=== PATIENT | female | born 1975 | race Caucasian/White ===

== ENCOUNTER 2016-08-15 14:36 | Emergency (ER) | payer OTHER ==
[~2016-08-15] VITALS: Ht 168.9 cm; Wt 160.9 kg
[~2016-08-15 14:36] MED LIST: HCTZ
[2016-08-15 14:44] VITALS: BP 194/108; PULSE 135; RESP 16; O2SAT 98
--- NOTE | 2016-08-15 14:57 | ED.REPORT ---
HPI-Allergic Reaction Date of Service Aug 15, 2016 ED Provider: Conor White DO A 41 year old female with a history of allergic reactions to antibiotics, diabetes, and HTN presents to the ED complaining of rash onset 3 days ago. She went to 6 days ago because of tooth pain and was prescribed clindamycin. 3 days ago she noticed a single hive-like rash on her chest. 2 days ago, she awoke to diffuse hive-like rash that has gotten progressively worse. Associated symptoms include facial swelling, and skin tightness. She denies any throat swelling or SOB. In the past, the patient experienced a 4-day delayed allergic reaction to zithromax that she was prescribed. Nursing Notes Stated Complaint: ALLERGIC REACTION TO ANTIOBIOTIC Chief Complaint: Allergic Reaction Nursing Notes Reviewed: Yes Allergies: Coded Allergies: azithromycin (Verified Allergy, Unknown, 08/15/16) codeine (Verified Allergy, Unknown, 08/15/16) Uncoded Allergies: 2 ? ABX PER PT- UNABLE TO RECALL (Allergy, Unknown, 08/15/16) Scheduled ([Hctz]) DAILY PT UNABLE TO RECALL DOSE Famotidine (Pepcid) 40 Mg Tablet 40 MG PO BID Prednisone (PredniSONE) 50 Mg Tablet 50 MG PO DAILY Scheduled PRN diphenhydrAMINE HCl (Benadryl) 25 Mg Capsule 50 MG PO QID PRN PRN For Itching General Time Seen by MD: 14:54 Chief Complaint Rash Hx Obtained From: Patient Arrived By: Walk-in Onset Occurred: 3 days ago Symptom Duration: Since onset Recent Healthcare: Recent doctor visit (went to 6 days ago for tooth pain.) Similar Sx Previous: Yes Past Medical History Past Medical History 4-day delayed allergic reation to zithromax in the past. Reports: Diabetes mellitus, Hypertension Past Surgical History none reported. Ambulatory Status Independent Review of Systems Review of Systems Note: facial swelling. Skin tightness. Ears / Nose / Throat: Denies: Throat swelling Respiratory: Denies: Shortness of breath Skin: Reports Rash (Hive like) Complete sys rev & neg: except as marked. Physical Exam Physical Exam Notes: Initial Vital Signs Vital Signs (First) Date Time Temp Pulse Resp B/P Pulse Ox O2 Delivery O2 Flow Rate FiO2 08/15/16 14:44 38.5 135 16 194/108 98 Room Air Initial VS: Reviewed General/Constitutional: Awake, Alert patient is febrile. Respiratory / Chest: Atraumatic, Breath sounds NL, Breath sounds = bilat, No respiratory distress, No wheezing, No stridor Heart Rate / Rhythm: Positive: Tachycardia hypertensive. diffuse urticaria. Head / Eyes: Atraumatic, Normocephalic, PERRL, EOMI face is bright red. ENT: Atraumatic, No trismus no oropharyngeal swelling, no sublingual swelling. Abdomen: Atraumatic, No guarding, No rebound Neurologic: Oriented X3, Speech NL No stridor on neck exam. Back: Atraumatic, Full range of motion Upper Extremity / MS: Atraumatic, Full range of motion Wrist / Hand: Atraumatic, Full range of motion Lower Extremity / Pelvis / MS: Atraumatic, Full range of motion Ankle / Foot: Atraumatic, Full range of motion Interpretation & Diagnostics Lab Results Interpretation Result Diagram: 08/15/16 1542 08/15/16 1515 Test 08/15/16 15:15 08/15/16 15:42 08/15/16 16:50 Sodium Level 132mEq/L (134-144) Potassium Level 5.5mEq/L (3.5-5.2) Chloride Level 98mEq/L (97-108) Carbon Dioxide Level 19mmol/L (18-29) Blood Urea Nitrogen 15mg/dL (6-20) Creatinine 0.67mg/dL (0.57-1.00) Estimat Glomerular Filtration Rate 140mL/min (>59) Glucose Level 358mg/dL (60-99) Lactic Acid Level 2.0mmol/L (0.4-2.0) Calcium Level 9.5mg/dL (8.5-10.1) Magnesium Level 1.9mg/dL (1.6-2.6) Total Bilirubin 0.6mg/dL (0.0-1.2) Aspartate Amino Transf (AST/SGOT) 31U/L (0-50) Alanine Aminotransferase (ALT/SGPT) 49U/L (0-32) Alkaline Phosphatase 69U/L (25-150) Total Protein 6.5g/dL (6.4-8.4) Albumin 3.9g/dL (3.4-5.0) Procalcitonin 0.09ng/mL (0.00-0.08) White Blood Count 9.6th/mm3 (3.8-10.1) Red Blood Count 5.27mil/mm3 (3.90-5.20) Hemoglobin 15.7g/dL (12.0-15.6) Hematocrit 44.2% (35.0-46.0) Mean Corpuscular Volume 83.9fL (81-100) Mean Corpuscular Hemoglobin 29.8pg (27.0-35.0) Mean Corpuscular Hemoglobin Concent 35.5% (32.0-37.0) Red Cell Distribution Width 13.9% (12.3-15.4) Platelet Count 241bil/L (150-400) Neutrophils (%) (Auto) 76.9% (40-74) Lymphocytes (%) (Auto) 15.7% (14-46) Monocytes (%) (Auto) 4.8% (4-12) Eosinophils (%) (Auto) 2.3% (0-5) Basophils (%) (Auto) 0.1% (0-3) Urine Color Yellow (YELLOW) Urine Appearance Hazy (CLEAR,HAZY) Urine pH 5.5 (5.0-8.0) Urine Specific [place] 1.030 (1.003-1.035) Urine Protein 30mg/dL (NEG,TRACE) Urine Glucose (UA) 1000mg/dL (NEGATIVE) Urine Ketones Tracemg/dL (NEGATIVE) Urine Occult Blood Trace (NEGATIVE) Urine Nitrite Positive (NEGATIVE) Urine Bilirubin Negative (NEGATIVE) Urine Urobilinogen Normalmg/dL (NORMAL) Urine Leukocyte Esterase Negative (NEGATIVE) Urine RBC 0-2/hpf (0-2) Urine WBC 11-50/hpf (0-5) Urine Epithelial Cells Moderate/hpf (NONE-MOD) Urine Crystals None seen (NONE SEEN) Urine Bacteria Many/hpf (NONE-FEW) Urine Hyaline Casts None/lpf (NONE) Urine Granular Casts None seen (NONE SEEN) Urine Waxy Casts None seen (NONE SEEN) Urine Red Blood Cell Casts None seen (NONE SEEN) Urine White Blood Cell Casts None seen (NONE SEEN) Urine Mucus None seen (None Seen) Urine Trichomonas None seen (NONE SEEN) Urine Yeast Few (NONE SEEN) Urinalysis Comment None Urine Culture Reflexed Indicated X-Ray Chest Interpretation Chest Xray Interpretation: IMPRESSION: No acute disease Dictated by: Krzysztof Nina M.D. on 08/15/2016 at 16:21 Approved by: Krzyszotf Nina M.D. on 08/15/2016 at 16:25 View: Portable, 1 view Interpretation / Wet Read by: Interpret - Radiologist Re-Eval/Medical Decision Med Decision/Clinical Course Clinical history sounds like allergic reaction however given the fever and tachycardia and there is some concern for some occult infection. she was treated with atypical allergic reaction medications without epinephrine, and had moderate clinical improvement without progression. Her heart rate has improved. Clinically there is no oral or other mucous membrane lesions and no signs of bullae formation or evidence of early Ryan-Jayjay syndrome at this time. It is felt that this patient is stable at this time for discharge. She is given explicit instructions and education about worsening signs and symptoms including the possibility of Ryan-Jayjay syndrome both verbally and on paper and feels comfortable with discharge plan. Source of Hx: Old records Re-Evaluation/Progress #1: Time of Eval: 17:29 Re-Evaluation/Progress Note: Rechecked patient Re-Evaluation/Progress #2: Time of Eval: 18:22 Re-Evaluation/Progress Note: Rechecked patient and explained plan for discharge. Urticaria still present but improved. Consultation #1: Referral / Consult Name: Olayinka Harmon MD Call Returned at: 17:30 Meat Products Demonstrator: Will see patient, Agrees with eval, Agrees with plan Note: Discussed patient case with Dr. Harmon who agrees to see the patient. Consultation #2: Referral / Consult Name: Olayinka Harmon MD Call Returned at: 18:00 [employer] Demonstrator: Agrees with plan Note: Dr. Harmon came to the ER and evaluated the patient and feels that this is an allergic reaction to antibiotics. He does not thinks that the patient needs admission at this point. Counseled Regarding: Diagnosis, Lab results, Need for follow-up, When/why to return to ED Discharge & Departure Primary Impression: Allergic reaction Encounter type: initial encounter Qualified Code: T78.40XA - Allergy, unspecified, initial encounter Disposition: Home Discharge Condition All VS Reviewed: Yes Condition: Improved Additional Instructions: Overall your symptoms seem to be an allergic reaction to clindamycin. Benadryl 50 mg every 6 hours, Pepcid twice daily, prednisone daily. You can also use Tylenol as needed for fever. Watch for signs and symptoms of Ryan-Jayjay syndrome or severe infection, this could be extremely lethargy, fatigue, oropharyngeal swelling, difficulty breathing, a blistering rash to your skin or other mucous membranes, or any other concerns. If this happens he should return immediately to the ER. Referrals: OTHER,PHYSICIAN (PCP) Zoie Caryibmya Attestation Portions of this note were transcribed by Jasbir Mota. I, Dr. White personally performed the history, physical exam and medical decision-making; I reviewed and confirmed the accuracy of the information in the transcribed note. Signed by: John Pulido, 08/15/2016 1840. copies to: Zoie Cary; OTHER,PHYSICIAN Conor White DO Aug 15, 2016 14:57 Jasbir oMta Aug 15, 2016 15:25
[2016-08-15] MEDS ORDERED: MethylprednisoLONE Sodium Succinate 62.5 mg/mL 2 mL Inj IVPUSH ONE (15:10)
[2016-08-15] MEDS ORDERED: Famotidine 10 mg/mL 2 mL Inj IVPUSH ONE (15:10)
[2016-08-15] MEDS ORDERED: 0.9% Sodium Chloride 1,000 ML IV ONE (15:10)
[2016-08-15 15:45] LABS: BASOPHILS % (AUTO) 0.1 % (0-3); EOSINOPHILS % (AUTO) 2.3 % (0-5); MONOCYTES % (AUTO) 4.8 % (4-12); Mean Corpuscular Hemoglobin 29.8 pg (27.0-35.0); Mean Corpuscular Volume 83.9 fL (81-100); NEUTROPHILS % (AUTO) 76.9 % (40-74); Platelet Count 241 bil/L (150-400)
[2016-08-15 15:54] LABS: Magnesium 1.9 mg/dL (1.6-2.6)
--- NOTE | 2016-08-15 16:26 | DRSVH ---
PROCEDURE: X-RAY CHEST ONE VIEW, PORTABLE ([id number]) INDICATIONS: fever TECHNIQUE: One view of the chest was acquired. COMPARISON: [facility], , CHEST 1VW (PORTABLE), 03/13/2013, 11:51. FINDINGS: Surgical changes and devices: None. Lungs and pleura: No pleural effusions or pneumothorax. Lungs are clear. Mediastinum: Mediastinal contours appear normal. Heart size is normal. Bones and chest wall: No suspicious bony lesions. Overlying soft tissues appear unremarkable. IMPRESSION: No acute disease Dictated by: Krzysztof Nina M.D. on 08/15/2016 at 16:21 Approved by: Krzysztof Nina M.D. on 08/15/2016 at 16:25
[2016-08-15 16:42] VITALS: BP 161/99; PULSE 118; RESP 15; O2SAT 95
[2016-08-15 17:33] LABS: APPEARANCE,URINE HAZY (CLEAR,HAZY); COLOR,URINE YELLOW (YELLOW); PH,URINE 5.5 (5.0-8.0)
[2016-08-15 17:34] LABS: OCCULT BLOOD,URINE TRACE (NEGATIVE); UROBILINOGEN,URINE NORMAL (NORMAL)
[2016-08-15 17:35] LABS: YEAST,URINE FEW (NONE SEEN)
[2016-08-15] MEDS ORDERED: PRED50TA PO (18:33)
[2016-08-15] MEDS ORDERED: FAMO40TA72 PO (18:33)
[2016-08-15] MEDS ORDERED: DIPH25CA6 PO (18:33)
[2016-08-15 18:40] VITALS: BP 152/90; PULSE 115; RESP 20; O2SAT 95
== END 2016-08-15 18:45 | disposition home or self-care (01) ==
LOC: SED 14:36
DX: R21 Rash and other nonspecific skin eruption (principal); R22.0 Localized swelling, mass and lump, head; T36.8X5A Adverse effect of other systemic antibiotics, initial encounter; X58.XXXA Exposure to other specified factors, initial encounter; Y93.89 Activity, other specified; Y92.9 Unspecified place or not applicable; Y99.8 Other external cause status; E11.9 Type 2 diabetes mellitus without complications; I10 Essential (primary) hypertension; Z88.1 Allergy status to other antibiotic agents; Z88.5 Allergy status to narcotic agent
CPT/HCPCS: 36415; 71010; 80053; 81000; 81025; 82308; 83605; 83735; 85025; 87040; 87086; 87088; 87186; 96361; 96374; 96375; 99284; J1200; J2930; J7030